=== PATIENT | female | born 1995 | race Two or more races ===

== ENCOUNTER 2018-08-14 04:51 | Emergency (ER) | payer OTHER ==
[~2018-08-14] VITALS: Ht 157.5 cm; Wt 57.1 kg
[2018-08-14 05:23] LABS: CLARITY,URINE SLIGHTLY CLOUDY (Clear); COLOR,URINE YELLOW (Yellow); GLUCOSE, URINE NEGATIVE (Neg); KETONES,URINE NEGATIVE (Neg); LEUKOCYTE ESTERASE ,URINE NEGATIVE (Neg); NITRITES, URINE NEGATIVE (Neg); OCCULT BLOOD,URINE LARGE (Neg); PROTEIN,URINE NEGATIVE (Neg); URINE HCG NEGATIVE (NEG); UROBILINOGEN,URINE 0.2 E.U/dL (0.2-1.0)
[2018-08-14 05:30] LABS: UA COLLECTION TYPE CLN CATCH MIDSTREAM
[2018-08-14 05:32] LABS: WBC,URINE 0-4 /HPF (0-4)
[2018-08-14 05:33] LABS: BACTERIA,URINE 1+ /HPF (Neg); MUCUS STRANDS MODERATE /LPF (Neg); SQUAMOUS EPITHELIAL CELL,UR MODERATE /LPF (FEW)
[2018-08-14 05:34] LABS: RBC,URINE 20-50 /HPF (0-2)
[2018-08-14] MEDS ORDERED: SULF1TAB49 PO (05:48)
[2018-08-14] MEDS ORDERED: sulfamethoxazole/trimethoprim DS (800/160mg) tablet PO ONE (05:55)
[2018-08-14 06:01] VITALS: BP 118/81
== END 2018-08-14 06:04 | disposition home or self-care (01) ==
LOC: ER 04:52
DX: N39.0 Urinary tract infection, site not specified (principal)
CPT/HCPCS: 81001; 81025; 99283